=== PATIENT | male | born 1970 | race Caucasian/White ===

== ENCOUNTER 2020-01-05 13:57 | Outpatient (CLI) | payer BC, SELFPAY ==
--- NOTE | ~2020-01-05 | US_ITS ---
EXAMINATION: US thyroid DATE: 01/05/2020 14:32 INDICATION: Nontoxic single thyroid nodule TECHNIQUE: Multiple ultrasound images of the thyroid were obtained. COMPARISON: None. FINDINGS: The right thyroid lobe measures 4.3 x 1.8 x 1.5 cm. The left thyroid lobe measures 3.6 x 1.0 x 0.7 c m. The thyroid isthmus measures 2 mm in thickness. 3 mm solid hypoechoic nodule at in the superolater al right thyroid lobe (TI-RADS 4, moderately suspicious , FNA if >=1.5 cm, annual followup is >1 cm). No other thyroid nodules. There is normal echotexture, echogenicity and vascular flow throughout the thyroid gland. IMPRESSION: 1. 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 2. 3 mm right thyroid nodule which does not meet size criteria for biopsy or follow-up. Reviewed, dictated and finalized at location A. IMPRESSION: 1. 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 2. 3 mm right thyroid nodule which does not meet size criteria for biopsy or fo llow-up.
== END 2020-01-05 13:58 | disposition home or self-care (01) ==
PROVIDERS: PCP Internal Medicine; Visit Provider Otolaryngology
DX: E04.1 Nontoxic single thyroid nodule (principal)
CPT/HCPCS: 76536

== ENCOUNTER → 2022-12-14 14:53 | Outpatient (CLI) | payer BC, SELFPAY ==
--- NOTE | ~2022-12-14 | MR_ITS ---
EXAMINATION: MR brain IAC wo/w con DATE: 12/14/2022 15:50 INDICATION: Dizziness and giddiness. TECHNIQUE: Magnetic resonance imaging (MRI) of the brain, brainstem, and internal auditory canals was performed without and with 19 mL MultiHance intravenous contrast. COMPARISON: None. FINDINGS: There are a few small foci of increased T2-weighted signal intensity in the cerebral white matter, which is within normal limits for the patient's age. There is no intracranial hemorrhage, acu te infarction, or abnormal intracranial mass lesion. The ventricles are normal in size. The orbits ar e normal. The paranasal sinuses are clear. The internal auditory canals and inner and middle ears are normal. The mastoid air cells are normal. IMPRESSION: 1. Normal brain. Reviewed, dictated and finalized at location A. IMPRESSION: 1. Normal brain.
== END ==
PROVIDERS: PCP Internal Medicine; Visit Provider Internal Medicine
DX: R42 Dizziness and giddiness (principal)
CPT/HCPCS: 70553; A9577

== ENCOUNTER 2025-02-23 01:13 | Day surgery (SDC) | payer BC, SELFPAY ==
[2025-02-12 14:04] VITALS: BMI 28.8
--- OUTSIDE RECORDS SUMMARY | 2025-02-23 01:16 | XMS_ITS | Data Portability ---
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 02/21/2024 In The 14 Days Before Symptom Onset, Have You Had Close Contact With A Laboratory-confir med COVID-19 While That Case Was Ill? No Information not available 08/21/2024 In The 14 Days Before Symptom Onset, Have You Had Close Contact With A Person Who Is Under Investigation For COVID-19 While That Person Was Ill? No Information not available 08/21/2024 Have You Been To An Area Known To Be High Risk For COVID-19? No Information not available 08/21/2024 Are You Deaf Or Do You Have Serious Difficulty Hearing? Yes Tinnitus Information not available 02/21/2024 Are There Any Guns Present In Your Home? No Information not available 08/21/2024 What Was The Date Of Your Most Recent Tobacco Screening? 11/27/2024 Information not available 11/27/2024 What Is Your Relationship Status? Information not available 02/21/2024 Do You Use Your Seat Belt Or Car Seat Routinely? Yes Information not available 08/21/2024 Do You Have Smoke And Carbon Monoxide Detectors In Your Home? Yes Information not available 08/21/2024 How Much Tobacco Do You Smoke? 2 PPD Information not available 02/21/2024 Do You Use Sunscreen Routinely? No Information not available 08/21/2024 Has Tobacco Cessation Counseling Been Provided? Yes Information not available 11/27/2024 On What Date Was Tobacco Cessation Counseling Provided? 11/27/2024 Information not available 11/27/2024 How Many Years Have You Smoked Tobacco? 15 Information not available 02/21/2024 Sex: Male Functional Status Question Answer Note LastModified by Organizat ion Details LastModified Time Do you use any illicit or recreational drugs? No Information not available 08/21/2024 Do you or have you ever used any other forms of tobacco or nicotine? No Information not available 11/27/2024 What is your level of alcohol consumption? Occasional Information not available 02/21/2024 Are you able to care for yourself? Yes Information n ot available 02/21/2024 Mental Status None recorded. Family History Relationship Description Onset Age of this Age Resolved Age Notes LastModified by Organization Details LastModified Time Father Harmful pattern of use of alcohol [email or web address] Not available 2023 11:18:40 Notes:Cancer-father Pt was a dopted, doesn't know much family history Medical History Condition Response Cancer Y Immunizations Vaccine Type Date Status Note Provider Nam e and Address Organization Details Recorded Time Influenza, split virus, quadrivalent, PF 06/29/2020 completed Lacey Bonilla MA [facility], [place] - [facility] 11/27/2024 09:10:15 Past Encounters Encounter ID Performer Location Encounter Start Date Encounter Closed Date Diagnosis/Indication Diagnosis SNOMED-CT Code Diagnosis ICD10 Code Diagnosis Note [id number] Dick Ramsay MD [facility] (Adult Med) [address] [place] [phone] 02/21/2024 10:51:37 02/21/2024 11:54:06 Hypothyroidism 59753714 E03.9 Anxiety 99714928 F41.9 Gastroesop hageal reflux disease without esophagitis 935149196 K21.9 Screening for cardiovascular system disease 887584883 Z13.6 [id number] Dick Ramsay MD [facility] (Adult Med) [address] [place] [phone] 08/21/2024 10:00:40 08/21/2024 11:32:07 Body mass index 25-29 - overweight 056608413 Z68.28 Overweight 396285692 E66 .3 Hypothyroidism 53725660 E03.9 Screening for cardiovascular system disease 290591851 Z13.6 Screening for malignant neoplasm of prostate 046551304 Z12.5 [id number] Dick Ramsay MD [facility] (Adult Med) [address] [place] [phone] 11/27/2024 11:18:40 11/27/2024 12:05:30 Hypothyroidism 33921572 E03.9 Body mass index 25-29 - overweight 153841874 Z68.29 Overweight 348449789 E66 .3 Screening for malignant neoplasm of colon 476933128 Z12.11 Influenza vaccination declined 007159426 Z28.21 Pneumococc al vaccination declined 693321563 Z28.21 Health Concerns Section Related Observation LastModified by Organization Detai ls LastModified Time None Recorded Concern Status LastModified by Organization Details LastModified Time None Recorded Advance Directives Directive N: Payers Encounter Date Sequence Insurance Name Policy Number Policy Childers Covered Member ID Childers Member ID Guarantor Name 02/21/2024 2 [employer] [id number] Christiane Alonzo [id number] Mainor Alonzo 02/21/2024 1 [employer] [id number] Mainor Alonzo [id number] Mainor Alonzo 08/21/2024 2 [employer] [id number] Christiane Alonzo [id number] Mainor Alonzo 08/21/2024 1 [employer] [id number] Mainor Alonzo [id number] Mainor Alonzo 11/27/2024 2 [employer] [id number] Christiane Alonzo [id number] Mainor Alonzo 11/27/2024 1 [employer] [id number] Mainor Alonzo [id number] Mainor Alonzo Notes Date Note Type Note Provider Name and Address Organization Details Recorded Time 02/21/2024 text/html 53-year-old come s in for follow-up of his medical problems #1 hypothyroid no heat or cold intolerance GERD omeprazole doing fine H2 blockers do not seem to cut his down significantly anxiety doing well no SI or HI 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 Hypothyroid energy not all that great. GERD okay with the omeprazole. History of plasmacytoma has been doing fine Dick Ramsay MD Attn: [address] [facility] , [place], [address], [facility] 08/22/2024 15:33:56 11/27/2024 text/html he did not call the counselors needs a colonoscopy taking his rosuvastatin sertraline omeprazole and levothyroxine for his anxiety dyslipidemia GERD and hypothyroidism no side effects Dick Ramsay MD Attn: [address] [facility], [place], [address], [facility] 11/28/2024 14:59:58
--- OUTSIDE RECORDS SUMMARY | 2025-02-23 01:17 | XMS_ITS | Data Portability ---
Author Organization [place] [facility] [email or web address], Main Office Address [address] [place] [address] Assessment Encounter Date Assessment Date Assessment LastModified by Organization Details LastModified Time 12/19/2022 12/19/2022 Neurology for headache Wellness completed Follow-up with me in 4 months [email or web address] Not available 12/22/2022 14:07:01 05/31/2023 05/31/2023 Will continue current therapy will follow-up in 4 months he needs to get his sleep study done [email or web address] Not available 06/02/2023 14:42:40 Plan of Treatment Reminders Order Date Submit Date Provider Last Modified By Organization Details Last Modified Time Details Appointments None recorded. Lab None recorded. Referral neurologist referral 2022 023 [email or web address] Janusz Byrne MD, 4 [facility] [place], [address], 4 14:19:52 Procedures None recorded. Surgeries None recorded. Imaging None recorded. Medication Orders None recorded. Patient TargetsNo targets recorded. Patient Instructions Encounter Date Encounter Id Patient Instructions Last Modified By Organization Details Last Modified Time 12/19/2022 [id number] risk assessment* [email or web address] Not availabl e 12/19/2022 21:45:43 INFLUENZA VACCIN E Recommended today, but patient declined Ordered Patient will get at local pharmacy/health department Elpidio t has egg allergy Next vaccination to be given fall of Next vaccination to be given fall TD/TDAP Patient will get at local pharmacy/health department PNEUMONIA VACCINE Recommended at age 64 SHINGLES Patient will get at local pharmacy/health department PSA No screening necessary patient is up to date COLORECTAL SCREENING No screening necessary patient is up to date DEPRESSION SCREENING Negative BMI Overweight try to lose 10% of your body weight NUTRITION Heart Healthy Diet Recommendati on of a 1500 caloric intake for weight loss is advised Diabetic Diet Renal Diet DASH Diet Continue healthy eating & exercise Eat Heart Healthy Diet PHYSICAL ACTIVITY Need more exercise/physical activity ALCOHOL USE Occasional/Social Use TOBACCO USE non smoker LUNG CANCER SCREENING Non Smoker-not indicated SEXUALLY ACTIVE HEPATITIS C SCREENING Not indicated GLUCOSE SCREENING Ordered Not needed Known Diabetic up to date LIPID SCREENING Ordered Not needed Diagnosis of Hyperlipidemia up to date [email or web address] Not available 12/19/2022 16:34:38 Reason for Referral Neurologist Referral for Tra nsient cerebral ischemia Referring Physician: Janusz Ramsay, Internal Medicine, Encounter Date: 12/19/2022 Results Created Date Observation Date Name Description Value Unit Range Abnormal Flag Note LastModifiedBy Organization Detail LastModifiedTime 05/10/20 22 05/10/2022 PSA SCREE N PSA medicare screen 0.57 NG/mL 0.00-4 .00 Not Available [facility] (Lab) [address] [place], [address], 05/10/2022 15:27:39 05/10/20 22 05/10/2022 TSH thyroid-stim ulating hormone 2.400 uIU/m L 0.465- 4.680 Not Available [facility] (Lab) [address] [place], [address], 05/10/2022 15:27:32 05/10/20 22 05/10/2022 T3 FREE free T3 3.6 pg/mL 2.77-5 .27 Not Available [facility] (Lab) [address] [place], [address], 05/10/2022 15:26:51 05/10/20 22 05/10/2022 T4 FREE free T4 0.92 NG/dL 0.78-2 .19 Not Available [facility] (Lab) [address] [place], [address], 05/10/2022 15:19:57 05/10/20 22 05/10/2022 LIPID PANEL cholesterol 204 mg/dL 140-19 9 high NIH ELICEO NSUS RECOM MENDA TION FOR TATA STERO L: ADULT CHILD LOW RISK: <200 <170 BORDE RLINE : <200- 239 ----- HIGH RISK: >240 >200 Not Available [facility] (Lab) [address] [place], [address], 05/10/2022 14:58:29 05/10/20 22 05/10/2022 LIPID PANEL triglyceride s 251 mg/dL 0-150 high NIH ELICEO NSUS REPOR T RECOM MENDA TION FOR TRIGL YCERI AFSANEH: ADULT CHILD LOW RISK: <150 ----- BODER LINE: 150-1 99 ----- HIGH RISK: >200 ----- Not Available [facility] (Lab) [address] [place], [address], 05/10/2022 14:58:29 05/10/20 22 05/10/2022 LIPID PANEL HDL cholesterol 44 mg/dL 40- Not Available [facility] (Lab) [address] [place], [address], 05/10/2022 14:58:29 05/10/20 22 05/10/2022 LIPID PANEL LDL cholesterol, calculated 110 mg/dL 0-130 NIH ELICEO NSUS REPOR T RECOM MENDA TIONS FOR LDL: ADULT CHILD LOW RISK <130 <110 (OPTI MAL LDL) <100 ----- BORDE RLINE : 130-1 59 ----- HIGH RISK: >160 >130 A TRIGL YCERI DE RESUL T >400 INVAL IDATE S THE CALCU LATIO N FOR LDL FRACT IONAT ION - THE LDL RESUL T WILL NOT BE REPOR FIFI. Not Available [facility] (Lab) [address] [place], [address], 05/10/2022 14:58:29 05/10/20 22 05/10/2022 COMPR EHENS SHWETA METAB OLIC PANEL sodium 139 mmol/ L 137-14 5 Not Available [facility] (Lab) [address] [place], [address], 05/10/2022 14:58:26 05/10/20 22 05/10/2022 COMPR EHENS SHWETA METAB OLIC PANEL potassium 4.3 mmol/ L 3.5-5. 1 Not Available [facility] (Lab) [address] [facility] [place], [address], 05/10/2022 14:58:26 05/10/20 22 05/10/2022 COMPR EHENS SHWETA METAB OLIC PANEL chloride 103 mmol/ L 98-107 Not Available [facility] (Lab) [address] [place], [address], 05/10/2022 14:58:26 05/10/20 22 05/10/2022 COMPR EHENS SHWETA METAB OLIC PANEL carbon dioxide 27 mmol/ L 22-30 Not Available [facility] (Lab) [address] [place], [address], 05/10/2022 14:58:26 05/10/20 22 05/10/2022 COMPR EHENS SHWETA METAB OLIC PANEL anion gap 13.3 mmol/ L 14-22 low Not Available [facility] (Lab) [address] [place], [address], 05/10/2022 14:58:26 05/10/20 22 05/10/2022 COMPR EHENS SHWETA METAB OLIC PANEL glucose 107 mg/dL 70-99 high Not Available [facility] (Lab) [address] [place], [address], 05/10/2022 14:58:26 05/10/20 22 05/10/2022 COMPR EHENS SHWETA METAB OLIC PANEL BUN 13 mg/dL 8-19 Not Available [facility] (Lab) [address] [place], [address], 05/10/2022 14:58:26 05/10/20 22 05/10/2022 COMPR EHENS SHWETA METAB OLIC PANEL creatinine 0.96 mg/dL 0.66-1 .25 Not Available [facility] (Lab) [address] [place], [address], 05/10/2022 14:58:26 05/10/20 22 05/10/2022 COMPR EHENS SHWETA METAB OLIC PANEL GFR >60 Refer ence Range : Fannin ge GFR Healt hy Adult : >60 mL/mi n/1.7 3 m2 Chron ic Kidne y Disea se: 15-60 mL/mi n/1.7 3 m2 Kidne y Failu re: <15/m L/min /1.73 m2 www.n iddk. nih.g ov The MDRD study equat ion has not been valid ated in child reynold <18 years of age; pregn ant women ; the elder ly >85 years of age; or in some racia l or ethni c subgr oups, such as Hispa nics. Outsi de the valid ated veena eters , estim ated GFR is less accur ate, requi ring clini ivana judgm ent on a case- by-ca se basis . Clini ivana inter preta tion for other races and ages must be made by the clini addy. The MDRD study equat ion has not been valid ated for the evalu ation of serum creat inine relat ed to nutri anaid l statu s or medic ation usage . For perso ns <18 years of age, a pedia tric GFR calcu lator is avail able on the F websi te: https ://ww w.kid caitlyn.o rg/pr ofess ional s/kdo qi/gf r_cal culat or Not Available [facility] (Lab) [address] [place], [address], 05/10/2022 14:58:26 05/10/20 22 05/10/2022 COMPR EHENS SHWETA METAB OLIC PANEL alkaline phosphatase 82 U/L 38-126 Not Available [facility] (Lab) [address] [place], [address], 05/10/2022 14:58:26 05/10/20 22 05/10/2022 COMPR EHENS SHWETA METAB OLIC PANEL alanine aminotransfe rase 31 U/L 0-50 Not Available [facility] (Lab) [address] [place], [address], 05/10/2022 14:58:26 05/10/20 22 05/10/2022 COMPR EHENS SHWETA METAB OLIC PANEL aspartate aminotransfe rase 34 U/L 15-46 Not Available [facility] (Lab) [address] [facility] [place], [address], 05/10/2022 14:58:26 05/10/20 22 05/10/2022 COMPR EHENS SHWETA METAB OLIC PANEL bilirubin, total 0.70 mg/dL 0.20-1 .30 Not Available [facility] (Lab) [address] [place], [address], 05/10/2022 14:58:26 05/10/20 22 05/10/2022 COMPR EHENS SHWETA METAB OLIC PANEL calcium 9.6 mg/dL 8.4-10 .2 Not Available [facility] (Lab) [address] [place], [address], 05/10/2022 14:58:26 05/10/20 22 05/10/2022 COMPR EHENS SHWETA METAB OLIC PANEL total protein 7.1 g/dL 6.3-8. 2 Not Available [facility] (Lab) [address] [place], [address], 05/10/2022 14:58:26 05/10/20 22 05/10/2022 COMPR EHENS SHWETA METAB OLIC PANEL albumin 4.5 g/dL 3.4-5. 0 Not Available [facility] (Lab) [address] [place], [address], 05/10/2022 14:58:26 05/10/20 22 05/10/2022 COMPR EHENS SHWETA METAB OLIC PANEL globulin 2.6 g/dL 2.6-4. 2 Not Available [facility] (Lab) [address] [facility] [place], [address], 05/10/2022 14:58:26 05/10/20 22 05/10/2022 COMPR EHENS SHWETA METAB OLIC PANEL A/G ratio 1.7 ratio 1.0-2. 0 Not Available [facility] (Lab) [address] [facility] [place], [address], 05/10/2022 14:58:26 05/10/20 22 05/10/2022 CBC/C OMPLE TE BLD COUNT W/DIF F mean red cell volume 95.4 fL 80.0-9 7.0 Not Available [facility] (Lab) [address] [place], [address], 05/10/2022 14:22:35 05/10/20 22 05/10/2022 CBC/C OMPLE TE BLD COUNT W/DIF F white blood cells 5.5 x10'3 /uL 4.2-10 .8 Not Available [facility] (Lab) [address] [place], [address], 05/10/2022 14:22:35 05/10/20 22 05/10/2022 CBC/C OMPLE TE BLD COUNT W/DIF F red blood cells 4.80 x10'6 /uL 4.10-5 .80 Not Available [facility] (Lab) [address] [place], [address], 05/10/2022 14:22:35 05/10/20 22 05/10/2022 CBC/C OMPLE TE BLD COUNT W/DIF F hemoglobin 15.7 g/dL 13.2-1 7.0 Not Available [facility] (Lab) [address] [place], [address], 05/10/2022 14:22:35 05/10/20 22 05/10/2022 CBC/C OMPLE TE BLD COUNT W/DIF F hematocrit 45.8 % 39.3-5 0.0 Not Available [facility] (Lab) [address] [place], [address], 05/10/2022 14:22:35 05/10/20 22 05/10/2022 CBC/C OMPLE TE BLD COUNT W/DIF F mean red cell hemoglobin 32.7 pg 27.0-3 3.0 Not Available [facility] (Lab) [address] [place], [address], 05/10/2022 14:22:35 05/10/20 22 05/10/2022 CBC/C OMPLE TE BLD COUNT W/DIF F mean RBC HGB concentratio n 34.3 g/dL 31.0-3 6.0 Not Available [facility] (Lab) [address] [place], [address], 05/10/2022 14:22:35 05/10/20 22 05/10/2022 CBC/C OMPLE TE BLD COUNT W/DIF F red cell distribution width 12.8 % 11.8-1 5.5 Not Available [facility] (Lab) [address] [place], [address], 05/10/2022 14:22:35 05/10/20 22 05/10/2022 CBC/C OMPLE TE BLD COUNT W/DIF F platelets 306 x10'3 /uL 150-40 0 Not Available [facility] (Lab) [address] [place], [address], 05/10/2022 14:22:35 05/10/20 22 05/10/2022 CBC/C OMPLE TE BLD COUNT W/DIF F mean platelet volume 10.1 fL 9.0-12 .4 Not Available [facility] (Lab) [address] [place], [address], 05/10/2022 14:22:35 05/10/20 22 05/10/2022 CBC/C OMPLE TE BLD COUNT W/DIF F neutrophils 55.1 % 39.0-7 2.0 Not Available [facility] (Lab) [address] [place], [address], 05/10/2022 14:22:35 05/10/20 22 05/10/2022 CBC/C OMPLE TE BLD COUNT W/DIF F lymphocytes 30.3 % 16.0-4 7.0 Not Available [facility] (Lab) [address] [place], [address], 05/10/2022 14:22:35 05/10/20 22 05/10/2022 CBC/C OMPLE TE BLD COUNT W/DIF F monocytes 11.8 % 5.0-12 .0 Not Available [facility] (Lab) [address] [place], [address], 05/10/2022 14:22:35 05/10/20 22 05/10/2022 CBC/C OMPLE TE BLD COUNT W/DIF F eosinophils 1.3 % 1.0-7. 0 Not Available [facility] (Lab) [address] [place], [address], 05/10/2022 14:22:35 05/10/20 22 05/10/2022 CBC/C OMPLE TE BLD COUNT W/DIF F basophils 1.1 % 0.0-2. 0 Not Available [facility] (Lab) [address] [place], [address], 05/10/2022 14:22:35 05/10/20 22 05/10/2022 CBC/C OMPLE TE BLD COUNT W/DIF F immature granulocytes 0.4 % 0.00-0 .50 Not Available [facility] (Lab) [address] [place], [address], 05/10/2022 14:22:35 05/10/20 22 05/10/2022 CBC/C OMPLE TE BLD COUNT W/DIF F neutrophils, absolute count 3.04 x10'3 /uL 1.5-8. 0 Not Available [facility] (Lab) [address] [place], [address], 05/10/2022 14:22:35 05/10/20 22 05/10/2022 CBC/C OMPLE TE BLD COUNT W/DIF F lymphocytes, absolute count 1.67 x10'3 /uL 1.07-3 .43 Not Available [facility] (Lab) [address] [place], [address], 05/10/2022 14:22:35 05/10/20 22 05/10/2022 CBC/C OMPLE TE BLD COUNT W/DIF F monocytes, absolute count 0.65 x10'3 /uL 0.29-0 .99 Not Available [facility] (Lab) [address] [place], [address], 05/10/2022 14:22:35 05/10/20 22 05/10/2022 CBC/C OMPLE TE BLD COUNT W/DIF F eosinophils, absolute count 0.07 x10'3 /uL 0.02-0 .53 Not Available [facility] (Lab) [address] [place], [address], 05/10/2022 14:22:35 05/10/20 22 05/10/2022 CBC/C OMPLE TE BLD COUNT W/DIF F basophils, absolute count 0.06 x10'3 /uL 0.01-0 .08 Not Available [facility] (Lab) [address] [place], [address], 05/10/2022 14:22:35 05/10/20 22 05/10/2022 CBC/C OMPLE TE BLD COUNT W/DIF F immature granulocytes ,absolute 0.02 x10'3 /uL 0.00-0 .05 Not Available [facility] (Lab) [address] [place], [address], 05/10/2022 14:22:35 05/10/20 22 05/10/2022 CBC/C OMPLE TE BLD COUNT W/DIF F nucleated red blood cells 0.0 % -0 Not Available [facility] (Lab) [address] [place], [address], 05/10/2022 14:22:35 05/10/20 22 05/10/2022 CBC/C OMPLE TE BLD COUNT W/DIF F NRBC# 0.00 x10'3 /uL Not Available [facility] (Lab) [address] [place], [address], 05/10/2022 14:22:35 10/05/19 23 10/05/2022 audio gram + tympa nogra m No observ ation record ed. [id number] [facility] [address] [place], [address], 11/14/2022 01:51:52 10/12/19 23 10/05/2022 audio gram + tympa nogra m No observ ation record ed. [id number] [facility] [address] [place], [address], 11/14/2022 01:51:52 11/09/19 23 elect rocar diogr am No observ ation record ed. [id number] [facility] [address] [facility] [address], [address], 11/14/2022 01:51:52 11/09/19 23 11/09/2022 elect rocar diogr am No observ ation record ed. [id number] [facility] [address], [place], [address], 11/14/2022 01:51:52 11/12/19 23 11/09/2022 elect khris genao am No observ ation record ed. [id number] [facility] [address], [place], [address], 11/14/2022 01:51:52 11/21/19 23 11/20/2022 US, duple x, carot id arter y No observ ation record ed. [email or web address] Not Available 2022 14:17:31 11/21/1911/20/2022 US, echoc ardio gram No observ ation record ed. [email or web address] Not Available 2022 14:17:39 12/15/19 23 12/14/2022 MRI, brain + inter nal audit ory canal , w/wo contr ast No observ ation record ed. [email or web address] [facility] [address], [place], [address], 12/21/2022 10:49:40 Result Notes None recorded. Problems Name Problem SNOMED Code Status Onset Date Resolution Date Notes Provider Name and Address Organization Details Recorded Time Insomnia 001372203 Active 2021 Not Available [facility] 3 16:17:10 Sensorineu ral hearing loss of bilateral ears 315720309 Active 2021 Not Available [facility] 3 16:17:10 Clavicle pain 521397163 Active Not Available [facility] 3 16:17:10 Gastroesop hageal reflux disease 518212977 Active 2021 Not Available [facility] 3 16:17:10 Gastroesop hageal reflux disease without esophagiti s 762545416 Active 2019 Not Available [facility] 3 16:17:10 Syncope 368019303 Active Not Available [facility] 3 16:17:10 Laceration of finger 476443624 Active Not Available [facility] 3 16:17:10 Low back pain 469307306 Active Not Available [facility] 3 16:17:10 Vertigo 855729956 Active 2021 Not Available [facility] 3 16:17:10 Dizziness 399194250 Active 2022 Not Available [facility] 3 16:17:10 Hypothyroi dism 77467860 Active 2021 Not Available [facility] 3 16:17:10 Plasmacyto ma 555618061 Active 2021 Not Available [facility] 3 16:17:10 Pain of shoulder region 23260472 Active Not Available [facility] 3 16:17:10 Bilateral tinnitus 3070587092307 Active 2021 Not Available [facility] 3 16:17:10 Anxiety 90859348 Active 2021 Not Available [facility] 3 16:17:10 Rhinitis 46517573 Active 2022 Not Available [facility] 3 16:17:10 Headache 97089667 Active 2022 Not Available [facility] 3 16:17:10 Sleep disorder 23117272 Active 2022 [place] [facility] [employer] 3 13:19:11 Problem Notes None recorded. Procedures Surgical History Date Name Laterality Status Provider Name and Address Organization Details Recorded Time 03/30/20 Colonoscopy completed Not Available [facility] 11/15/19 01:20:49 excision of basal cell carcinoma completed Not Available [facility] 11/14/2022 01:20:49 Imaging Results None recorded. Procedure Notes None recorded. Medical Equipment None Reported. Allergies No known drug allergies Medications Name Sig Start Date Stop Date Status Note LastModified by Organization Details LastModified Time pilocarpin e 5 mg tablet TAKE 1 TABLET BY MOUTH THREE TIMES DAILY active Not Available Not Available No t Available tizanidine 4 mg tablet TK 1 T PO QHS PRF BACK SPASM active Not Available Not Available No t Available fluorourac il 5 % topical cream 05/10 completed Not Available Not Available Not Available acetaminop hen 300 mg-codeine 30 mg tablet TK 1 T PO Q 6 TO 8 H PRN P 12/16 completed Not Available Not Available Not Available omeprazole 40 mg capsule,de layed release TAKE 1 CAPSULE BY MOUTH EVERY DAY 2023 active Not Available Not Available Not Avai lable oxycodone- acetaminop hen 5 mg-325 mg tablet 03/06 completed Not Available Not Available Not Available dextroamph etamine-am phetamine ER 20 mg 24hr capsule,ex tend release TK ONE C PO QAM 03/06 completed Not Available Not Available Not Available levothyrox ine 50 mcg tablet TAKE 1 TABLET BY MOUTH EVERY DAY 2022 active Not Available Not Available Not Avai lable hydrocodon e 7.5 mg-acetami nophen 325 mg tablet TK 1 T PO Q 4 H PRN FOR PAIN 03/06 completed Not Available Not Available Not Available cephalexin 500 mg capsule 03/06 completed Not Available Not Available Not Available dextroamph etamine-am phetamine 20 mg tablet TAKE 1 TABLET PO BID 03/06 completed Not Available Not Available Not Available warfarin 5 mg tablet 03/06 completed Not Available Not Available Not Available montelukas t 10 mg tablet TAKE 1 TABLET BY MOUTH EVERY DAY 03/06 completed Not Available Not Available Not Available levofloxac in 500 mg tablet 06/17 completed Not Available Not Available Not Available methylpred nisolone 4 mg tablets in a dose pack use as directed 03/06 completed Not Available Not Available Not Available fluticason e propionate 50 mcg/actuat ion nasal spray,susp ension SHAKE LIQUID AND USE 2 SPRAYS IN EACH NOSTRIL DAILY active Not Available Not Available No t Available sertraline 50 mg tablet TAKE 1 AND 1/2 TABLETS BY MOUTH EVERY DAY active Not Available Not Available No t Available sildenafil (pulmonary hypertensi on) 20 mg tablet 3 tablets p.o. 30-40 minutes before intercou rse 05/31 completed pt states he never took it Not Available Not Available Not Available Suprep Bowel Prep Kit 17.5 gram-3.13 gram-1.6 gram oral solution 05/07 completed Not Available Not Available Not Available ID NOW COVID-19 Test Kit USE 1 KIT TODAY DIRECTED 07/12 completed Not Available Not Available Not Available Vitals Date Recorded Body mass index (BMI) Body height Heart rate Body temperature Body weight Systolic blood pressure Diastolic blood pressure Provider Name and Address Organization Details Last Updated DateTime 3 30.1 kg/m2 175.26 cm 69 /min 97.9 [degF] 48283.8 4 g 120 mm[Hg] 74 mm[Hg] Not Available [facility] 3 01:26:54 Date Recorded Body height Body mass index (BMI) Body weight Body temperature Heart rate Systolic blood pressure Diastolic blood pressure Provider Name and Address Organization Details Last Updated DateTime 3 175.26 cm 29.5 kg/m2 50418.4 7 g 97.3 [degF] 80 /min 118 mm[Hg] 88 mm[Hg] POLY [place] [facility] 3 16:19:11 Date Recorded Body mass index (BMI) Body height Heart rate Body temperature Body weight Systolic blood pressure Diastolic blood pressure Provider Name and Address Organization Details Last Updated DateTime 2 30 kg/m2 175.26 cm 72 /min 97.2 [degF] 33325.2 5 g 124 mm[Hg] 80 mm[Hg] Not Available [facility] 3 01:26:54 Date Recorded Body mass index (BMI) Body height Heart rate Body temperature Body weight Systolic blood pressure Diastolic blood pressure Provider Name and Address Organization Details Last Updated DateTime 2 30.3 kg/m2 175.26 cm 65 /min 97.6 [degF] 78851.4 4 g 116 mm[Hg] 74 mm[Hg] Not Available [facility] 3 01:26:54 Date Recorded Body mass index (BMI) Body height Body temperature Body weight Provider Name and Address Organization Details Last Updated DateTime 05/31/2022 30.2 kg/m2 175.26 cm 97.6 [degF] 44880.72 g Not Available [facility] 11/14/2022 01:27:00 Date Recorded Body height Body mass index (BMI) Body weight Body temperature Heart rate Systolic blood pressure Diastolic blood pressure Provider Name and Address Organization Details Last Updated DateTime 3 175.26 cm 29.5 kg/m2 68844.4 7 g 97.8 [degF] 81 /min 118 mm[Hg] 80 mm[Hg] POLY [place] [facility] 12:22:18 Social History Question Answer Notes LastModified by Organization Details LastModified Time Tobacco Smoking Status Former Smoker quit 1997 Not Available [facility] 11/14/2022 01:13:31 Do You Have An Advance Directive? Yes [id number] Information not available 11/14/2022 Do You Wear A Helmet When Biking? Yes [id number] Information not available 11/14/2022 What Is Your Level Of Caffeine Consumption? Moderate [email or web address].300 [id number] Information not available 11/14/2022 How Much Tobacco Do You Chew? None [email or web address].030 [id number] Information not available 11/14/2022 In The 14 Days Before Symptom Onset, Have You Had Close Contact With A Laboratory-confi rmed COVID-19 While That Case Was Ill? No [email or web address].030 [id number] Information not available 11/14/2022 In The 14 Days Before Symptom Onset, Have You Had Close Contact With A Person Who Is Under Investigation For COVID-19 While That Person Was Ill? No [email or web address].030 [id number] Information not available 11/14/2022 What Type Of Diet Are You Following? REGULAR [email or web address].300 [id number] Information not available 11/14/2022 Which Illicit Or Recreational Drugs Have You Used? None [email or web address].030 [id number] Information not available 11/14/2022 What Is The Highest Grade Or Level Of School You Have Completed Or The Highest Degree You Have Received? [id number] [id number] Information not available 11/14/2022 Have There Been Any Changes To Your Family Or Social Situation? No [email or web address].030 [id number] Information not available 11/14/2022 What Is The Fluoride Status Of Your Home? Unknown [email or web address].030 [id number] Information not available 11/14/2022 When Did You Quit Smoking? 15+yearssincory tejada MIGRATION.300 [id number] Information not available 11/14/2022 Are There Any Guns Present In Your Home? Yes [email or web address].030 [id number] Information not available 11/14/2022 Do You Use Insect Repellent Routinely? No [id number] [id number] Information not available 11/14/2022 Where Do You Live? [place]House MIGRATION.0301 [id number] Information not available 11/14/2022 Do You Have A Medical Power Of Water Supervisor? Yes [email or web address].0301 [id number] Information not available 11/14/2022 What Was The Date Of Your Most Recent Tobacco Screening? 05/31/2023 [email or web address] Information not available 05/31/2023 Do You Have Any Pets? Yes [email or web address].[id number] [id number] Information not available 11/14/2022 What Is Your Relationship Status? [email or web address].0301 [id number] Information not available 11/14/2022 Do You Use Your Seat Belt Or Car Seat Routinely? Yes [id number] Information not available 11/14/2022 Do You Have Smoke And Carbon Monoxide Detectors In Your Home? Yes MIGRATION.0301 [id number] Information not available 11/14/2022 Are You Passively Exposed To Smoke? No MIGRATION.0301 [id number] Information not available 11/14/2022 Are There Any Smokers In Your House? No MIGRATION.0301 [id number] Information not available 11/14/2022 How Much Tobacco Do You Smoke? No MIGRATION.0301 248125 Information not available 11/14/2022 What Types Of Sporting Activities Do You Participate In? None MIGRATION.0301 [id number] Information not available 11/14/2022 Do You Use Sunscreen Routinely? Yes MIGRATION.0301 [id number] Information not available 11/14/2022 Has Tobacco Cessation Counseling Been Provided? No MIGRATION.0301 717118 Information not available 11/14/2022 Have You Recently Traveled Abroad? No MIGRATION.0301 [id number] Information not available 11/14/2022 Do You Have Any Dietary Restrictions? No MIGRATION.0301 134702 Information not available 11/14/2022 Sex: Male Functional Status Question Answer Note LastModified by Organizat ion Details LastModified Time Do you use any illicit or recreational drugs? No MIGRATION.[id number] Information not available 11/14/2022 Do you or have you ever used any other forms of tobacco or nicotine? No MIGRATION.138010 1744 Information not available 11/14/2022 What is your level of alcohol consumption? Occasional MIGRATION.731137 4002 Information not available 11/14/2022 Do you or have you ever used smokeless tobacco? 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 Never used electronic cigarettes MIGRATION.577757 4428 Information not available 11/14/2022 What is your exercise level? Moderate MIGRATION.738220 4405 Information not available 11/14/2022 Mental Status Question Answer Note LastModified by Organizat ion Details LastModified Time Do you feel stressed (tense, restless, nervous, or anxious, or unable to sleep at night)? [id number] MIGRATION.[id number] Information not available 11/14/2022 Family History Relationship Description Onset Age of this Age Resolved Age Notes LastModified by Organization Details LastModified Time Father General health good MIGRATION.552 [id number] Not available 11/14/2022 01:20:55 Mother Malignant neoplastic disease MIGRATION.199 [id number] Not available 11/14/2022 01:20:55 Notes:NO ENT PROBLEMS Medical History Condition Response NERVE DISEASE N BLINDNESS N RHEUMATIC FEVER N KIDNEY STONES N BLADDER PROBLEMS N OTHER # 1 Y POLIO N LUNG DISEASE/DISORDER N COPD N RADIATION / CHEMOTHERAPY N Other # 2 N BLOOD DISEASES N SURGERY N EAR OR HEARING PROBLEMS N MUMPS N DEPRESSION (INCLUDING POST ) N BOWEL PROBLEMS N STROKE/TIA N ULCERS N BENIGN PROSTATIC HYPERPLASIA N MEASLES N MYOCARDIAL INFARCTION N OBESITY N GERD/NAUSEA Y ANEURYSM N URINARY/BLADDER/KIDNEY PROBLEMS N CORONARY ARTERY DISEASE (CAD) N INPATIENT PSYCH CARE N ADDICTION CONCERNS N Impotence N ENDOMETRIOSIS N USE OF BLOOD THINNERS N SKIN PROBLEMS N GASTROINTESTINAL DISORDER N PERIPHERAL VASCULAR DISEASE N MUSCLE,JOINT OR BONE PROBLEMS N GASTROINTESTINAL BLEEDING N BLOOD CLOTS N ASTHMA N CATARACTS N ERECTILE DYSFUNCTION N VARICOSITIES N GI PROBLEMS N Low Testosterone N INFERTILITY N AIDS/HIV N LIVER DISEASE N MALE HYPOGONADISM N HYPERTENSION N Deficiency N ANXIETY DISORDER N BLOOD TRANSFUSION N ANEMIA/BLOOD DISORDER N CHRONIC EAR INFECTIONS N BRONCHITIS N TUBERCULOSIS N GLAUCOMA N FOOT PROBLEM N DIVERTICULITIS N SLEEP APNEA N CHICKENPOX N INFECTIOUS DISEASE N PROSTATE N HEART ARRHYTHMIA N INSOMNIA N HIGH CHOLESTEROL / HYPERLIPIDEMIA Y EYE PROBLEMS N HYPERTHYROIDISM N NEUROLOGICAL PROBLEMS N EDEMA N CHRONIC PAIN SYNDROME N HYPOTHYROIDISM N CAROTID BLOCKAGE N CONSTIPATION N BACK / NECK PROBLEMS N HAVE YOU BEEN HOSPITALIZED OR SEEN IN [facility] IN THE PAST YEAR ? N ATHEROSCLEROSIS N BREAST PROBLEMS N DIALYSIS N ECZEMA N OSTEOPOROSIS N ARTHRITIS N APPENDICITIS N DIABETES, TYPE N BAD TEETH N ENT N HEARTBURN / REFLUX N AUTISM SPECTRUM DISORDER (ASD) N HEPATITIS / LIVER DISEASE N PULMONARY DISEASE N GOUT N SLEEP DISORDER N ALZHEIMER'S DISEASE N Brain Problems N DEMENTIA N HERPES N SEIZURES/EPILEPSY N HEADACHES/MIGRAINES N VASCULAR DISEASE N PACEMAKER N Blood Disorder N DIZZINESS N HEART DISEASE/HEART PROBLEMS N KIDNEY DISEASE N MULTIPLE SCLEROSIS N CANCER: SPECIFY Y CARDIAC ARRHYTHMIA N ANESTHESIA COMPLICATIONS N ATRIAL FIBRILLATION N Gall Stones N PULMONARY EMBOLISM N AUTOIMMUNE DISEASE N Immunizations Vaccine Type Date Status Note Provider Nam e and Address Organization Details Recorded Time Influenza, split virus, quadrivalent, PF 06/29/2020 completed Not Available [facility] 16:17:10 Past Encounters Encounter ID Performer Location Encounter Start Date Encounter Closed Date Diagnosis/Indication Diagnosis SNOMED-CT Code Diagnosis ICD10 Code Diagnosis Note [id number] Janusz Ramasy MD [facility] [address] [address] 02/22/2021 00:00:00 02/25/2021 11:59:42 [id number] Janusz Ramsay MD [facility] [address] [address] 04/05/2021 00:00:00 04/08/2021 13:42:26 [id number] Janusz Ramsay MD [facility] [address] [place] [address] 1 07/12/2021 00:00:00 07/22/2021 21:03:41 [id number] Janusz Ramsay MD [facility] [address] [place] [address] 1 08/23/2021 00:00:00 09/03/2021 12:06:56 [id number] Janusz Ramsay MD [facility] [address] [place] [address] 1 01/05/2022 00:00:00 01/05/2022 16:27:[id number] [facility] Internal Med [facility] 2043 [facility] [address] [place] [address] 05/10/2022 00:00:00 05/21/2022 21:34:[id number] [facility] ENT [facility] Oakley [address] [place] [address] 05/31/2022 00:00:00 05/31/2022 12:40:[id number] [facility] Internal Med [facility] [address] [facility] [address] [place] [address] 12/19/2022 15:06:39 12/19/2022 16:59:44 Adult health examination 314622476 Z00.00 Depression screening 171 712301 Z13.31 Transient cerebral ischemia 318241049 G45.9 Delete Headache 76107364 R51.9 Hypothyroidism 41174932 E03.9 Gastroesop hageal reflux disease without esophagitis 140609295 K21.[id number] [facility] Internal Med [facility] [address] [facility] [address] [place] [address] 05/31/2023 12:08:16 05/31/2023 13:16:23 Gastroesophageal reflux disease without esophagitis 509177317 K21.9 Hypothyroidism 50730386 E03.9 Insomnia 530821571 G47.0 0 Rhinitis 61692657 J00 Health Concerns Section Related Observation LastModified by Organization Detai ls LastModified Time None Recorded Concern Status LastModified by Organization Details LastModified Time None Recorded Advance Directives Directive Y: Payers Encounter Date Sequence Insurance Name Policy Number Policy Childers Covered Member ID Childers Member ID Guarantor Name 12/19/2022 1 [place] [id number] Mainor Alonzo [id number] Mainor Alonzo 12/19/2022 2 [place] Christiane Alonzo [id number] Mainor Alonzo 05/31/2023 1 [place] [id number] Mainor Alonoz [id number] Mainor Alonzo Notes Date Note Type Note Provider Name and Address Organization Details Recorded Time 12/19/2022 text/html Still with some headache went to chiropractor neck manipulation house neck hurts a little Janusz Ramsay MD [address], [place], [address], [facility] [employer] [facility] [employer] [facility] 12/22/2022 14:08:48 05/31/2023 text/html Rhinitis stable on fluticasone. Hypothyroid no heat or cold at times. GERD no nausea no vomiting. Insomnia fairly stable. Neck pain maybe a little bit better Janusz Ramsay MD [address], [place], [address], [email or web address] 06/02/2023 14:42:55
--- OUTSIDE RECORDS SUMMARY | 2025-02-23 01:17 | XMS_ITS | Clinical Summary ---
Author Organization [facility] Address [address] [place] [address] Care Team Providers Care Wood Barker Name Role Phone Janusz Ramsay MD Primary Care Provider [phone] Janusz Ramsay MD Unavailable [phone] Tonio Narayan DO Unavailable [phone] Allergies No known active allergies Medications pilocarpine (SALAGEN) 5 mg tablet pilocarpine 5 mg tablet TK 1 T PO TID Active omeprazole (PriLOSEC) 40 mg capsule omeprazole 40 mg capsule,delayed release Active levothyroxine (SYNTHROID) 50 mcg tablet levothyroxine 50 mcg tablet TK 1 T PO QD Active Active Problems Problem Noted Date Diagnosed Date 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 Immunizations Immunization Administration Dates Next Due Influenza, Quadrivalent, Spl it, Preservative Free, Intramuscular 06/29/2020 Family History Medical History Relation Name Comments Cancer Father Relation Name Status Comments Father Social History Tobacco Use Types Packs/Day Years Used Date Smoking Tobacco: Former Smokeless Tobacco: Never Alcohol Use Standard Drinks/Week Comments Not Currently 0 (1 standard drink = 0.6 oz pur e alcohol) Personal Safety Answer Date Recorded Getting School Help Needed Not on file 11/10 Sex and Gender Information Value Date Recorded Sex Assigned at Not on file 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 Gender Identity Not on file Sexual Orientation Not on file Obstetrics History Last Filed Vital Signs Vital Sign Reading Time Taken Comments Blood Pressure 120/74 02/17/2024 4:30 PM CDT Pulse 60 02/17/2024 4:30 PM CDT Temperature 36.7 C (98 F) 02/17/2024 4:30 PM CDT Respiratory Rate 18 02/17/2024 4:30 PM CDT Oxygen Saturation 98% 02/17/2024 4:3 0 PM CDT Inhaled Oxygen Concentration - - Weight 90.2 kg (198 lb 12.8 oz) 024 4:30 PM CDT with shoes Height 175.3 cm (5' 9) 02/18/2023 11:1 5 AM CDT Body Mass Index 29.36 02/18/2023 11:15 AM CDT Plan of Treatment Health Maintenance Due Date Last Done Comments Colon Cancer Screening-Colonoscopy 1969 Depression Screening 1969 Hepatitis C Screening 1969 Prostate Cancer Screening-PSA 1969 DTaP/Tdap/Td Vaccine (1 - Tdap) 1980 Hepatitis B Screening 1987 Regular Well Visit/Exam 18-64 1987 Pneumococcal vaccine <65 (1 of 2 - PCV) 1988 Zoster Vaccine (1 of 2) 1988 Influenza Vaccine (Season Ended) 2025 06/29/20 20 [facility] [employer] [place] [facility] [employer] [place] [employer] [place] Care Teams Wood Barker Relationship Specialty Start Date End Date Janusz Ramsay MD PCP - General 12/07/19 Janusz Ramsay MD 12/07/19 Tonio Narayan DO [address] [place] [id number] Medical Oncologist/Inspector [employer] Hematology and Oncology 11/28/18
--- OUTSIDE RECORDS SUMMARY | 2025-02-23 01:17 | XMS_ITS | CONTINUITY OF CARE DOCUMENT ---
Author Name nahomiez bertoefraín Address Unknown Organization [facility] Address [address] [place] [address] Phone [phone] Care Team Providers Care Auto Dismantler Name Role Phone Timothy MONTOYA, Pepper Unavailable DICK SANCHEZ MD Unavailable [phone] DICK SANCHEZ MD Unavailable [phone] PROBLEMS Condition Status Date Provider Notes Coumadin therapy active Meenu Hardin RN Other symptoms involving cardiovascular system completed - Pepper Aguirre MD Syncope Micturition syncope active Pepper Aguirre MD pt has had a normal echo, holter, strerss test in the past FAMILY HISTORY OF HEART DISEASE, father has a mechanical valve and Afib active Pepper Aguirre MD REVEAL active Reina kaye MD S/P [employer] REVEAL/LinQ Sinus pause - 3 seconds active Brian Huitron MD Tobacco use, quit active Reina smalls MD CAD active Reina kaye MD Chest tightness active Reina washburn MD ENCOUNTERS Date Type Provider Location Encounter Diag nosis - In-person encounter Office Visit Reina Huitron MD [facility] - In-person encounter Office Visit Reina Huitron MD [facility] - In-person encounter Office Visit Reina Huitron MD [facility] ZAHRAChest tightness - In-person encounter Office Visit Reina Huitron MD [facility] Sinus pause - 3 secondsTobacco use, quit - In-person encounter Office Visit Reina Huitron MD [facility] REVEAL - In-person encounter Office Visit Pepper Aguirre MD [facility] - In-person encounter Office Visit Reina Huitron MD [facility] - In-person encounter Office Visit Pepper Aguirre MD [facility] Other symptoms involving cardiovascular systemSyncope Micturition syncopeFAMILY HISTORY OF HEART DISEASE, father has a mechanical valve and Afib VITAL SIGNS Date Observation Value Provider Body Mass Index (Ratio) 28.35 kg/m2 Brian Huitron MD blood pressure, diastolic 80 mm[Hg] Nohemi Hardin blood pressure, systolic 110 mm[Hg] Krunal Hardin oxygen saturation, oximetry 99 % Katina Hardin respiratory rate E&M 16 /min Katina Hardin pulse rate 83 /min Katina Hardin weight E&M 192 [lb_av] Katina Hardin height E&M 69 [in_i] Katina Hardin Body Mass Index (Ratio) 28.44 kg/m2 Brian Huitron MD blood pressure, diastolic 86 mm[Hg] Maureen Kessler blood pressure, systolic 131 mm[Hg] Patricia Kessler oxygen saturation, oximetry 97 % Arianna Kessler respiratory rate E&M 18 /min Lamonte Kessler pulse rate 79 /min Arianna evans weight E&M 192.6 [lb_av] Arianna castañeda height E&M 69 [in_i] Arianna evans Body Mass Index (Ratio) 28.26 kg/m2 Brian Huitron MD blood pressure, resting No Meenu Kessler blood pressure, diastolic 81 mm[Hg] Maureen Kessler blood pressure, systolic 122 mm[Hg] Patricia Kessler oxygen saturation, oximetry 98 % Arianna Kessler respiratory rate E&M 18 /min Lamonte Kessler pulse rate 90 /min Arianna evans weight E&M 191.4 [lb_av] Arianna castañeda height E&M 69 [in_i] Arianna Brambila ledy blood pressure, diastolic 74 mm[Hg] Me hannah Bethea blood pressure, systolic 119 mm[Hg] Yeimi gustavo Bethea pulse rate 96 /min Luma Bethea oxygen saturation, oximetry 97 % Luma Bethea respiratory rate E&M 15 /min Luma Bethea Body Mass Index (Ratio) 27.17 kg/m2 [facility] weight E&M 184 [lb_av] Luma Bethea blood pressure, diastolic 74 mm[Hg] Me hannah Bethea blood pressure, systolic 111 mm[Hg] Yeimi gustavo Bethea pulse rate 76 /min Luma Bethea oxygen saturation, oximetry 98 % Luma Bethea respiratory rate E&M 14 /min Luma Bethea Body Mass Index (Ratio) 26.58 kg/m2 [facility] weight E&M 180 [lb_av] Luma Bethea Body Mass Index (Ratio) 27.32 kg/m2 [facility] blood pressure, diastolic 79 mm[Hg] Me hannah Bethea blood pressure, systolic 113 mm[Hg] Yeimi gustavo Bethea pulse rate 78 /min Luma Bethea oxygen saturation, oximetry 98 % Luma Bethea respiratory rate E&M 14 /min Luma Bethea weight E&M 185 [lb_av] Luma Bethea Body Mass Index (Ratio) 26.87 kg/m2 Gisela Nolen blood pressure, diastolic 82 mm[Hg] An dana Nolen blood pressure, systolic 119 mm[Hg] Anna Nolen pulse rate 85 /min Arsen Nolen oxygen saturation, oximetry 98 % Arsen Nolen respiratory rate E&M 16 /min Abelardo Nolen weight E&M 182 [lb_av] Arsen Nolen Body Mass Index (Ratio) 27.02 kg/m2 Gisela Nolen blood pressure, diastolic 93 mm[Hg] An dana Nolen blood pressure, systolic 152 mm[Hg] Anna Nolen pulse rate 103 /min Arsen Nolen oxygen saturation, oximetry 98 % Arsen Nolen respiratory rate E&M 17 /min Abelardo Nolen weight E&M 183 [lb_av] Arsen Nolen height E&M 69 [in_i] Arsen Nolen ALLERGIES No Known Drug Allergies RESULTS Date Observation Value Provider Reference Range Interpretation Location activated partial thromboplastin time 33 SECONDS [facility] 23-33 international normalized ratio (INR) 2.1 [facility] 0.9-1.1 High prothrombin time (patient) 21.6 s [facility] 9.0-11.5 High platelet count 318 THOUSAND/UL [facility] [id number] 4634/10/ 24 Absolute Basophils 0.0 CELLS/UL [facility] 0.0-0.2 Absolute Monocytes 0.5 CELLS/UL [facility] 0.2-1.0 Absolute Lymphocytes 1.12 CELLS/UL [facility] 0.85-3.90 Absolute Neutrophils 2.5 CELLS/UL [facility] 1.5-7.8 mean corpuscular volume, RBC 95 fL [facility] 75-100 mean corpuscular hemoglobin concentration, RBC 33 G/DL [facility] 31-38 mean corpuscular hemoglobin, RBC 32 pg [facility] 25-35 hematocrit, blood 48 % [facility] 35-55 hemoglobin, blood 16.0 g/dL [facility] 11.5-16.5 erythrocyte count, whole blood 5.0 MILLION/UL [facility] 3.5-5.5 Estimated Glomerular Filtration Rate (calc) 93 (?) [facility] >59 chloride, serum 98 mmol/L [facility] 98-107 potassium, serum 4.5 mmol/L [facility] 3.5-5.1 sodium, serum 139 mmol/L [facility] [id number] 9148/10/ 24 creatinine, serum 0.9 mg/dL [facility] 0.7-1.2 carbon dioxide, venous blood 29 mmol/L [facility] 22-29 calcium, serum 10.2 mg/dL [facility] 8.6-10.2 urea nitrogen, blood 14 mg/dL [facility] 6-20 blood glucose, random 93 mg/dL [facility] 74-99 coagulation managed by Meenu Hardin RN international normalized ratio (INR) 2.2 Katia Bernal Normal prothrombin time (patient) 25.8 s Katia Gabe HISTORY OF MEDICATION USE Medication Status Instructions Dates Provider Indications Com ments COUMADIN 5 MG ORAL TABLET completed one tablet daily 0 - 4 Katina Hardin HYDROCODONE-HEMA TAMINOPHEN 5-325 MG ORAL TABLET active Take every 8 hrs prn for pain 7 Ana Cristina Hunt RN ADDERALL XR 25 MG ORAL CAPSULE EXTENDED RELEASE 24 HOUR active 1 tab daily Arsen Nolen SOCIAL HISTORY Date Observation Value Provider social history reviewed E&M revi ewed - no changes required Reina Huitron MD smoking, year quit 1998 Katina Rodriguez kade smoking, date started 1983 Katina Hardin smoking history, tot al pack/year 33 Katina Hardin smoking history, tot al pack/day 2pks Katina Hardin cigarette use yes Katina Hardin smoking status Former smoker Katina Hardin smoking history, tot al pack/year 33 Ana Cristina Hnut RN social history E&M S moking History: Pacheco davila is a former smoker. Reina Huitron MD social history reviewed E&M revi ewed - no changes required Reina Huitron MD smoking, year quit 1998 AriannaChristiane Kessler smoking, date started 1983 MeenuSekou goran Kessler smoking history, tot al pack/year 31 Arianna Kessler smoking history, tot al pack/day 2pks AriannaChristiane Kessler cigarette use yes Arianna Ronan amddy smoking status Former smoker Arianna renetta number of grandchildren Reina Garcia social history reviewed E&M revi ewed - no changes required Chuy Garcia smoking, year quit 1998 Ariannashakir Kessler smoking, date started 1983 Nadeem Kessler smoking history, tot al pack/year 31 Arianna Kessler smoking history, tot al pack/day 2pks Arianna Kessler cigarette use yes Arianna alegriaon smoking status Former smoker Arianna [facility]son social history E&M Smoking Histo ry: Pacheco davila is a former smoker. Reina Huitron MD social history reviewed E&M revi ewed - no changes required Reina Huitron MD smoking, year quit 1998 Luma Paulino smoking, date started 1983 Dona Bethea smoking history, tot al pack/year 31 Luma Bethea smoking history, tot al pack/day 2pks Luma Bethea cigarette use yes Luma Bethea smoking status Former smoker Luma Pete bonnie social history E&M Smoking Histo ry: P giovanni is a former smoker. Reina Huitron MD social history reviewed E&M revi ewed - no changes required Reina Huitron MD smoking, year quit 1998 Luma Paulino smoking, date started 1983 Dona Bethea smoking history, tot al pack/year 31 Luma Bethea smoking history, tot al pack/day 2pks Luma Bethea cigarette use yes Luma Bethea smoking status Former smoker Luma Pete bonnie social history reviewed E&M revi ewed - no changes required Pepper Aguirre MD smoking/tobacco cess ation, patient education and counseling yes Luma Bethea smoking, year quit 1998 Luma Paulino smoking, date started 1983 Dona Bethea smoking history, tot al pack/year 31 Luma Bethea smoking history, tot al pack/day 2pks Luma Bethea cigarette use yes Luma Bethea smoking status Former smoker Luma Pete bonnie smoking/tobacco cess ation, patient education and counseling yes Reina Huitron MD social history reviewed E&M revi ewed - no changes required Reina Huitron MD smoking status Former smoker Arsen Jose Elias snyder smoking history, tot al pack/year 31 Meenu Vianey social history reviewed E&M revi ewed - no changes required Pepper Aguirre MD smoking, year quit 1998 Arsen Nolen smoking, date started 1983 Cielo Nolen smoking history, tot al pack/day 2pks Arsen Nolen cigarette use yes Arsen Nolen smoking status Former smoker Anenathaly [place] wn FAMILY HISTORY Family Member Condition Mother Family History Unkno wn INSURANCE PROVIDERS Payer name Policy type / Coverage type [employer] party ID [facility] [id number] [facility] [id number] ADVANCE DIRECTIVES Name Date DISCUSSED - NO DECISION MADE TREATMENT PLAN Date Name Performer Cardiology Reina pichardo MD Cardiology:The loop recorder was removed and the incsision site has healed. The stictches will be removed today. Reina Huitron MD Electrophysiology:IL R report showed 3 second pause. Patient was not symptomatic. Recommend EP stidy with possible ablation and possible loop recorder removal Reina Huitron MD Electrophysiology:No chest pain. Reina Huitron MD EP:Sometimes experie nces chest tightness. Will do stress echo O rders: 9 9215 HIGH Complex (CPT-37879) S TR - Echo (CPT-74458) S chedule Followup (*) Chuy Garcia EP:Sometimes experie nces chest tightness. Will do stress echo O rders: 9 9215 HIGH Complex (CPT-44896) S TR - Echo (CPT-49209) S chedule Followup (*) Chuy Garcia EP:No recent episode s of syncope. ILR shows no recent events. O rders: 9 9215 HIGH Complex (CPT-93080) S TR - Echo (CPT-39349) S chedule Followup (*) Chuy Garcia EP:No recent episode s of syncope. ILR shows no recent events. O rders: 9 9215 HIGH Complex (CPT-10251) S TR - Echo (CPT-85162) S chedule Followup (*) Chuy Garcia EP faxed 02/24/16:Had an asymptomatic 3 second pause on 01/12/2016. Reina Huitron MD EP faxed 02/24/16:Asymptomatic. O ccurred on 01/10/2016 Reina Huitron MD Cardiology Reina pichardo MD Cardiology:Will cont inue to monitor. If no correlation is made between symptoms and bradyarrhythmias, EP study may be recommended. Reina Huitron MD Cardiology Reina pichardo MD Date Name BASIC METABOLIC PANE L W/EGFR CBC (INCLUDES DIFF/P LT) Partial Thromboplast in Time, Activated PROTHROMBIN TIME WIT H INR ABLATION w/ Anesthes ia STR - Echo Complete Echo HISTORY OF PROCEDURES Procedure Date Procedure Name Provider Procedure Notes S tatus EKG Reina pichardo MD completed SNOMED-CT: [id number] Current Medications Documented Reina Huitron MD completed Protime Reina pichardo MD completed EKG Reina pichardo MD completed SNOMED-CT: 745887765016380 Current Medications Documented Reina Huitron MD completed Loop Recorder Interrogation, Remote Pepper Aguirre MD INTERROGATION EVALUATION REMOTE </30 D ILR SYS completed ICM Interrogation, Remote (Tech) Pepper Aguirer MD INTERROGATION EVAL REMOTE </30 D TECH REVIEW completed Loop Recorder Interrogation, Remote Pepper Aguirre MD INTERROGATION EVALUATION REMOTE </30 D ILR SYS completed ICM Interrogation, Remote (Tech) Pepper Aguirre MD INTERROGATION EVAL REMOTE </30 D TECH REVIEW completed Loop Recorder Interrogation, Remote Pepper Aguirre MD INTERROGATION EVALUATION REMOTE </30 D ILR SYS completed ICM Interrogation, Remote (Tech) Pepper Aguirre MD INTERROGATION EVAL REMOTE </30 D TECH REVIEW completed Schedule Followup Reina hudson MD with Dr. Aguirre in 1 year completed EKG Reina pichardo MD completed SNOMED-CT: [id number] Current Medications Documented Reina Huitron MD completed Loop Recorder Interrogation, Remote Pepper Aguirre MD INTERROGATION EVALUATION REMOTE </30 D ILR SYS completed ICM Interrogation, Remote (Tech) Pepper Aguirre MD INTERROGATION EVAL REMOTE </30 D TECH REVIEW completed Loop Recorder Interrogation, Remote Pepper Aguirre MD INTERROGATION EVALUATION REMOTE </30 D ILR SYS completed ICM Interrogation, Remote (Tech) Pepper Aguirre MD INTERROGATION EVAL REMOTE </30 D TECH REVIEW completed Loop Recorder Interrogation, Remote Pepper Aguirre MD INTERROGATION EVALUATION REMOTE </30 D ILR SYS completed ICM Interrogation, Remote (Tech) Pepper Aguirre MD INTERROGATION EVAL REMOTE </30 D TECH REVIEW completed Loop Recorder Interrogation, Remote Pepper Aguirre MD INTERROGATION EVALUATION REMOTE </30 D ILR SYS completed ICM Interrogation, Remote (Tech) Pepper Aguirre MD INTERROGATION EVAL REMOTE </30 D TECH REVIEW completed Loop Recorder Interrogation, Remote Pepper Aguirre MD INTERROGATION EVALUATION REMOTE </30 D ILR SYS completed ICM Interrogation, Remote (Tech) Pepper Aguirre MD INTERROGATION EVAL REMOTE </30 D TECH REVIEW completed Loop Recorder Interrogation, Remote Pepper Aguirre MD INTERROGATION EVALUATION REMOTE </30 D ILR SYS completed ICM Interrogation, Remote (Tech) Pepper Aguirre MD INTERROGATION EVAL REMOTE </30 D TECH REVIEW completed Loop Recorder Interrogation, Remote Pepper Aguirre MD INTERROGATION EVALUATION REMOTE </30 D ILR SYS completed ICM Interrogation, Remote (Tech) Pepper Aguirre MD INTERROGATION EVAL REMOTE </30 D TECH REVIEW completed Loop Recorder Interrogation, Remote Pepper Aguirre MD INTERROGATION EVALUATION REMOTE </30 D ILR SYS completed ICM Interrogation, Remote (Tech) Pepper Aguirre MD INTERROGATION EVAL REMOTE </30 D TECH REVIEW completed Loop Recorder Interrogation, Remote Pepper Aguirre MD INTERROGATION EVALUATION REMOTE </30 D ILR SYS completed ICM Interrogation, Remote (Tech) Pepper Aguirre MD INTERROGATION EVAL REMOTE </30 D TECH REVIEW completed Loop Recorder Interrogation, Remote Pepper Aguirre MD INTERROGATION EVALUATION REMOTE </30 D ILR SYS completed ICM Interrogation, Remote (Tech) Pepper Aguirre MD INTERROGATION EVAL REMOTE </30 D TECH REVIEW completed Schedule Followup Reina hudson MD 1 year completed SNOMED-CT: 393603767 Smoking Cessation Counseling Reina Huitron MD completed EKG Reina pichardo MD completed SNOMED-CT: 558784957667619 Current Medications Documented Reina Huitron MD completed Loop Recorder Interrogation, Remote Pepper Aguirre MD INTERROGATION EVALUATION REMOTE </30 D ILR SYS completed ICM Interrogation, Remote (Tech) Pepper Aguirre MD INTERROGATION EVAL REMOTE </30 D TECH REVIEW completed Loop Recorder Interrogation, Remote Pepper Aguirre MD INTERROGATION EVALUATION REMOTE </30 D ILR SYS completed ICM Interrogation, Remote (Tech) Pepper Aguirre MD INTERROGATION EVAL REMOTE </30 D TECH REVIEW completed Loop Recorder Interrogation, Remote Pepper Aguirre MD INTERROGATION EVALUATION REMOTE </30 D ILR SYS completed ICM Interrogation, Remote (Tech) Pepper Aguirre MD INTERROGATION EVAL REMOTE </30 D TECH REVIEW completed Loop Recorder Interrogation, Remote Pepper Aguirre MD INTERROGATION EVALUATION REMOTE </30 D ILR SYS completed ICM Interrogation, Remote (Tech) Pepper Aguirre MD INTERROGATION EVAL REMOTE </30 D TECH REVIEW completed Loop Recorder Interrogation, Remote Pepper Aguirre MD INTERROGATION EVALUATION REMOTE </30 D ILR SYS completed ICM Interrogation, Remote (Tech) Pepper Aguirre MD INTERROGATION EVAL REMOTE </30 D TECH REVIEW completed Loop Recorder Interrogation, Remote Pepper Aguirre MD INTERROGATION EVALUATION REMOTE </30 D ILR SYS completed ICM Interrogation, Remote (Tech) Pepper Aguirre MD INTERROGATION EVAL REMOTE </30 D TECH REVIEW completed Loop Recorder Interrogation, Remote Pepper Aguirre MD INTERROGATION EVALUATION REMOTE </30 D ILR SYS completed ICM Interrogation, Remote (Tech) Pepper Aguirre MD INTERROGATION EVAL REMOTE </30 D TECH REVIEW completed SNOMED-CT: [id number] Smoking Cessation Counseling Reina Huitron MD completed SNOMED-CT: [id number] Physical Exam, Performed: Pulse Exam of Foot Reina Huitron MD completed EKG Reina pichardo MD completed SNOMED-CT: 161914846117009 Current Medications Documented Reina Huitron MD completed Loop Recorder Interrogation, Remote Pepper Aguirre MD INTERROGATION EVALUATION REMOTE </30 D ILR SYS completed ICM Interrogation, Remote (Tech) Pepper Aguirre MD INTERROGATION EVAL REMOTE </30 D TECH REVIEW completed Loop Recorder Interrogation, Remote Pepper Aguirre MD INTERROGATION EVALUATION REMOTE </30 D ILR SYS completed ICM Interrogation, Remote (Tech) Pepper Aguirre MD INTERROGATION EVAL REMOTE </30 D TECH REVIEW completed Loop Recorder Interrogation, Remote Pepper Aguirre MD INTERROGATION EVALUATION REMOTE </30 D ILR SYS completed ICM Interrogation, Remote (Tech) Pepper Aguirre MD INTERROGATION EVAL REMOTE </30 D TECH REVIEW completed Loop Recorder Interrogation, Remote Pepper Aguirre MD INTERROGATION EVALUATION REMOTE </30 D ILR SYS completed ICM Interrogation, Remote (Tech) Pepper Aguirre MD INTERROGATION EVAL REMOTE </30 D TECH REVIEW completed Schedule Followup Reina hudson MD Follow up with Dr. Aguirre routinely completed EKG Reina pichardo MD completed EKG Pepper Aguirre MD completed
--- OUTSIDE RECORDS SUMMARY | 2025-02-23 01:17 | XMS_ITS | Referral Summary ---
Author Organization [facility] Address [address] [place] [address] Care Team Providers Care Count Team Clerk Name Role Phone Janusz Ramsay MD Primary Care Provider [phone] Janusz Ramsay MD Unavailable [phone] Tonio Narayan DO Unavailable [phone] Allergies No known active allergies Medications pilocarpine [...] Quadrivalent, Spl it, Preservative Free, Intramuscular 06/29/2020 Social History Tobacco Use Types Packs/Day Years Used Date Smoking Tobacco: Former Smokeless Tobacco: Never Alcohol Use Standard Drinks/Week Comments Not Currently 0 (1 standard drink = 0.6 oz pur e alcohol) Personal Safety Answer Date Recorded Getting School Help Needed Not on file 11/10 Sex and Gender Information Value Date Recorded Sex Assigned at Not on file 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
[2025-02-23 06:23] VITALS: BP 114/91; PULSE 78; RESP 18; TEMP 36.2; O2SAT 99
[2025-02-23] MEDS: LACTATED RINGERS 1,000 ML 150 ML IV CONT (06:33)
--- NOTE | 2025-02-23 07:27 | PM.HPGS ---
History of Present Illness History of Present Illness Consent: Risks, benefits, and alternatives have been discussed and questions answered. Patient agrees to proceed with procedure. Chief complaint: Screening Narrative: Mainor Alonzo is a 54 year old male here for colonoscopy, last one 5 years ago with polyp Review of Systems Review of Systems: All systems reviewed & are unremarkable except as noted in HPI and below PMFSH Past Medical History Medical History (Updated 02/23/25 @ 07:28 by Andrew Rodriguez MD) Colon polyp Social History Social History Years smoked: 15 Smoking status: Former smoker Alcohol intake: never Substance use: never Substance use type: does not use Living arrangements: with family Spiritual care concerns: No Meds Home Medications and Allergies Home Medications ?Medication ?Instructions ?Recorded ?Confirmed ?Type levothyroxine 50 mcg tablet 50 mcg PO DAILY 02/12/25 02/12/25 History omeprazole 40 mg capsule,delayed 40 mg PO DAILY 02/12/25 02/12/25 History release rosuvastatin 10 mg tablet 10 mg PO DAILY 02/12/25 02/12/25 History sertraline 50 mg tablet 50 mg PO DAILY 02/12/25 02/12/25 History Allergies Allergy/AdvReac Type Severity Reaction Status Date / Time No Known Allergies Allergy Unknown Verified 02/23/25 06:16 Vital Signs Vital Signs - 24 hr 02/23/25 06:23 Temperature 97.2 F L Pulse Rate 78 Respiratory Rate 18 Blood Pressure 114/91 H Pulse Oximetry 99 Oxygen Delivery Room Air Exam Const: General: comfortable and no acute distress HENMT: Face/Nose/Sinus: Normal nares present Eyes: General: appearance normal, both eyes and all related structures Neck: Neck: no JVD Resp: Auscultation: clear to auscultation bilaterally Cardio: Rate: regular rate Rhythm: regular rhythm GI: Inspection: non-distended GI Palp: Yes Soft to palpation Skin: General skin exam: normal color Neuro: General: gait normal Speech: normal speech Extrem: General: normal to inspection Psych: Mental Status: mental status grossly normal Assessment and Plan Assessment and plan (1) Colon polyp: Code(s): K63.5 - Polyp of colon Status: Acute Assessment and Plan: colonoscopy
--- NOTE | 2025-02-23 07:41 | S_PTH ---
PATIENT: Mainor Alonzo LOC: [facility]#:[id number] AGE/SX: 54/M ROOM: RE02/23/[address]: Andrew Rodriguez MD : 1970 BED: DIS: 02/23/2025 SPEC #: [id number] RECD: 02/23/25 09:14 STATUS: MYLES REAlfa #: [id number] AILYN: 02/23/25 07:[address]: Andrew Rodriguez DEPT: [facility] Surgical RECD BY: Dell White ENTERED: 02/23/25 09:15 SP TYPE: Surgical OTHR DR: Janusz RamsayMD Tissues: A - Colon Polypectomy B - Colon Polypectomy Procedures: Hematoxylin and Eosin Stain Gross and Microscopic Level 4
[2025-02-23 07:44] VITALS: BP 83/55; PULSE 59; RESP 22; O2SAT 98
[2025-02-23 07:54] VITALS: BP 83/56; PULSE 57; RESP 17; O2SAT 99
[2025-02-23 08:04] VITALS: BP 102/69; PULSE 59; RESP 16; O2SAT 99
--- NOTE | 2025-03-22 14:33 | WPDANESEPPF ---
Anes - Initial Pre Proc Eval Procedure: Operation Date: 02/23/25 07:30 Proposed Procedures p Screening Colonoscopy - Andrew Rodriguez MD Date/Time: 03/22/25 14:33 Surgeon: Andrew Rodriguez MD Pre Op Diagnosis: Screening Patient Data Age: 54 Gender: M Height: 1.75 m Weight: 87.6 kg Last Vital Signs Temp 36.2 C L 02/23/25 06:23 Pulse 59 L 02/23/25 08:04 Resp 16 02/23/25 08:04 BP 102/69 02/23/25 08:04 Pulse Ox 99 02/23/25 08:04 O2 Del Method Room Air 02/23/25 08:04 Allergies Allergy/AdvReac Type Severity Reaction Status Date / Time No Known Allergies Allergy Unknown Verified 02/23/25 06:16 Home Medications ?Medication ?Instructions ?Recorded ?Confirmed ?Type levothyroxine 50 mcg tablet 50 mcg PO DAILY 02/12/25 02/12/25 History omeprazole 40 mg capsule,delayed 40 mg PO DAILY 02/12/25 02/12/25 History release rosuvastatin 10 mg tablet 10 mg PO DAILY 02/12/25 02/12/25 History sertraline 50 mg tablet 50 mg PO DAILY 02/12/25 02/12/25 History Patient hx anesthesia problems: none Family hx anesthesia problems: none Results Review: All pre-operative results and documents have been reviewed as part of the pre-operative evaluation. [facility], [facility] Past Medical History Medical History Colon polyp Social History Social History Years smoked: 15 Smoking status: Former smoker Alcohol intake: never Substance use: never Substance use type: does not use Living arrangements: with family Spiritual care concerns: No Anes - Eval Final PreProcedure Day of Procedure 03/22/25 14:33 Patient weight: overweight ASA classification: II Emergent: no Anesthetic plan: proceed Anesthesia type and monitoring: general GIVS and standard monitoring Results Review: All pre-operative results and documents have been reviewed as part of the pre-operative evaluation. Informed Consent: The patient's anesthetic plan and its attendant risks and benefits were discussed with the patient/family/POA. Questions were solicited and answers provided to the satisfaction of the patient/family/POA.
== END 2025-02-23 08:18 | disposition home or self-care (01) ==
PROVIDERS: PCP Internal Medicine; Referring Provider Internal Medicine; Visit Provider Internal Medicine Gastroenterology
PROC: 0DJD8ZZ Inspection of Lower Intestinal Tract, Via Natural or Artificial Opening Endoscopic (ICD-10-PCS; CPT 45378; principal; 2025-02-23 07:30)
DX: Z12.11 Encounter for screening for malignant neoplasm of colon (principal); D12.3 Benign neoplasm of transverse colon; D12.5 Benign neoplasm of sigmoid colon; K64.8 Other hemorrhoids
CPT/HCPCS: 45385; 88305; J2003; J2704; J7120